=== PATIENT | male | born 1975 ===

== ENCOUNTER 2018-09-30 10:32 | Emergency (ER) | payer BC, OTHER ==
[2018-09-30 10:41] VITALS: O2SAT 100
[2018-09-30 11:11] LABS: BASO % 0.6 % (0.0-2.0); EOS % 0.5 % (0.0-4.0); HEMOGLOBIN 15.5 g/dL (12.0-18.0); LYMPH # 1.7 K/uL (1.0-4.3); LYMPH % 21.4 % (20.0-40.0); MEAN CELL VOLUME 85.4 fL (80.0-94.0); MEAN CORPUSCULAR HGB CONC 33.9 g/dL (33.0-37.0); MEAN PLATELET VOLUME 7.5 fL (7.2-11.7); MONO # 0.4 K/uL (0.0-0.8); MONO % 5.5 % (0.0-10.0); NEUT # 5.7 K/uL (1.8-7.0); NRBC % 0.1 % (0.0-2.0); RBC 5.36 Mil/uL (4.40-5.90); RED CELL DISTRIBUTION WIDTH 12.5 % (11.5-14.5); WHITE BLOOD COUNT 7.9 K/uL (4.8-10.8)
[2018-09-30 11:13] LABS: SQUAMOUS EPITHIAL 1 /hpf (0-5); URINE BILIRUBIN NEGATIVE (NEGATIVE); URINE BLOOD NEGATIVE (NEGATIVE); URINE CLARITY Clear (Clear); URINE COLOR Straw (YELLOW); URINE GLUCOSE (UA) 3+ mg/dL (Normal); URINE LEUKOCYTE ESTERASE NEG Leu/uL (Negative); URINE PROTEIN NEGATIVE (NEGATIVE); URINE UROBILINOGEN NORMAL mg/dL (0.2-1.0)
[2018-09-30 11:32] LABS: BARBITURATES, UR NEGATIVE (NEGATIVE); BENZODIAZEPINES, UR NEGATIVE (NEGATIVE); PHENCYCLIDINE, UR NEGATIVE (NEGATIVE)
[2018-09-30 11:35] LABS: ALB/GLOB RATIO 1.3 (1.0-2.1); ALBUMIN 4.7 g/dL (3.5-5.0); ALT/SGPT 20 U/L (21-72); AST/SGOT 28 U/L (17-59); BLOOD UREA NITROGEN 10 mg/dL (9-20); CALCIUM 9.8 mg/dl (8.6-10.4); GFR NON-AFRICAN AMERICAN > 60
[2018-09-30] MEDS ORDERED: Sodium Chloride 0.9% 1,000 ML IV STA ×2 (11:51→13:46)
[2018-09-30] MEDS ORDERED: (Novolin R) Insulin Human Regular 100 units/ml vial IVP STA (11:52)
[2018-09-30] MEDS ORDERED: Sodium Chloride 0.9% 1,000 ML ONE (12:10)
[2018-09-30] MEDS ORDERED: (Novolin R) Insulin Human Regular 100 units/ml vial ONE (12:10)
[2018-09-30 12:36] LABS: OPIATES, UR POSITIVE (NEGATIVE)
[2018-09-30 13:49] VITALS: BP 128/62; PULSE 65; RESP 20; TEMP 98.2
[2018-09-30] MEDS ORDERED: (Novolin R) Insulin Human Regular 100 units/ml vial IVP ONE (13:50)
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
== END 2018-09-30 15:16 | disposition home or self-care (01) ==
LOC: C.ER 10:32
DX: E11.65 Type 2 diabetes mellitus with hyperglycemia (principal); F19.20 Other psychoactive substance dependence, uncomplicated; F41.9 Anxiety disorder, unspecified
CPT/HCPCS: 80053; 81001; 82948; 83735; 84100; 85025; 96361; 96374; 99285; G0480; J7030

== ENCOUNTER 2018-10-08 19:11 | Emergency (ER) | payer OTHER | END 2018-10-08 23:55 | disposition home or self-care (01) | LOC: C.ER 19:11 | DX: E11.65 Type 2 diabetes mellitus with hyperglycemia (principal) | CPT/HCPCS: 80053; 80320; 80324; 80345; 80346; 80349; 80353; 80358; 80361; 81001; 82009; 82948; 83735; 83992; 84100; 85025; 96374; 99284; J7030 ==

== ENCOUNTER 2018-10-09 15:59 | Inpatient (IN) | payer BC, OTHER ==
[2018-10-09] MEDS ORDERED: Sodium Chloride 0.9% 1,000 ML IV ONE (17:18)
[2018-10-09] MEDS ORDERED: Sodium Chloride 0.9% 1,000 ML ONE (17:59)
[2018-10-09 18:23] LABS: BASO % 0.5 % (0.0-2.0); EOS # 0.1 K/uL (0.0-0.7); EOS % 0.9 % (0.0-4.0); HEMOGLOBIN 12.6 g/dL (12.0-18.0); LYMPH % 32.8 % (20.0-40.0); MEAN CELL VOLUME 83.9 fL (80.0-94.0); MEAN CORPUSCULAR HEMOGLOBIN 27.9 pg (27.0-31.0); MEAN CORPUSCULAR HGB CONC 33.3 g/dL (33.0-37.0); MEAN PLATELET VOLUME 7.6 fL (7.2-11.7); MONO # 0.6 K/uL (0.0-0.8); MONO % 6.5 % (0.0-10.0); NEUT # 5.4 K/uL (1.8-7.0); NEUT % 59.3 % (50.0-75.0); NRBC % 0.1 % (0.0-2.0); RBC 4.52 Mil/uL (4.40-5.90); RED CELL DISTRIBUTION WIDTH 12.6 % (11.5-14.5); WHITE BLOOD COUNT 9.1 K/uL (4.8-10.8)
[2018-10-09 18:25] LABS: SQUAMOUS EPITHIAL < 1 /hpf (0-5); URINE BILIRUBIN NEGATIVE (NEGATIVE); URINE BLOOD NEGATIVE (NEGATIVE); URINE CLARITY Clear (Clear); URINE COLOR Yellow (YELLOW); URINE GLUCOSE (UA) 3+ mg/dL (Normal); URINE LEUKOCYTE ESTERASE NEG Leu/uL (Negative); URINE PROTEIN NEGATIVE (NEGATIVE); URINE UROBILINOGEN NORMAL mg/dL (0.2-1.0)
[2018-10-09 18:38] LABS: ALB/GLOB RATIO 1.4 (1.0-2.1); ALBUMIN 3.6 g/dL (3.5-5.0); ALT/SGPT 26 U/L (21-72); AST/SGOT 19 U/L (17-59); BLOOD UREA NITROGEN 11 mg/dL (9-20); CALCIUM 8.8 mg/dl (8.6-10.4); GFR NON-AFRICAN AMERICAN > 60
[2018-10-09 18:46] LABS: BARBITURATES, UR NEGATIVE (NEGATIVE); PHENCYCLIDINE, UR NEGATIVE (NEGATIVE)
--- NOTE | 2018-10-09 18:50 | C.PDOC ---
History Of Present Illness 42 y/o male,w/PMhx of diabetes, presents to the ER requesting detox from heroin. Patient states that he is taking Methadone and he last used Methadone yesterday. He last used heroin IV 3 bags yesterday.Of note, he was treated for uncontrolled diabetes in [facility] last night. Patient reports that he is taking Metformin. He notes that he checked his blood sugar levels which were greater than 400 today. Denies having suicidal ideation, homicidal ideation, and active physical complaints. Time Seen by Provider: 10/09/18 17:02 Chief Complaint (Nursing): Substance Abuse History Per: Patient History/Exam Limitations: no limitations Past Medical History Reviewed: Historical Data, Nursing Documentation, Vital Signs Vital Signs: Last Vital Signs Temp 98.8 F 10/09/18 16:32 Pulse 100 H 10/09/18 16:32 Resp 20 10/09/18 16:32 BP 155/88 H 10/09/18 16:32 Pulse Ox 97 10/09/18 16:32 Primary Care Provider: Blair Luis MD - Medical History PMH: Anxiety, Depression, Diabetes, HTN Other Surgeries: Hx of surgeries Family History: States: No Known Family Hx - Social History Hx Alcohol Use: Yes Hx Substance Use: Yes - Immunization History Hx Tetanus Toxoid Vaccination: Yes Hx Influenza Vaccination: No Hx Pneumococcal Vaccination: No Review Of Systems Constitutional: Negative for: Fever, Chills Psych: Negative for: Suicidal ideation Physical Exam - Physical Exam Appears: No Acute Distress, Other (obese) Skin: Normal Color, Warm, Dry Head: Atraumatic, Normacephalic Eye(s): bilateral: Normal Inspection Nose: Normal Oral Mucosa: Moist Neck: Supple Chest: Symmetrical Cardiovascular: Rhythm Regular Respiratory: Normal Breath Sounds, No Rales, No Rhonchi, No Wheezing Gastrointestinal/Abdominal: Normal Exam, Soft, No Tenderness, No Guarding, No Rebound Neurological/Psych: Oriented x3, Normal Speech ED Course And Treatment - Laboratory Results Result Diagrams: 10/09/18 18:19 10/09/18 18: Lab Results: Total Bilirubin 0.3 mg/dL (0.2-1.3) 10/09/18 18: AST 19 U/L (17-59) 10/09/18 18: ALT 26 U/L (21-72) 10/09/18 18: Alkaline Phosphatase 67 U/L (38-126) 10/09/18 18: Total Protein 6.2 g/dL (6.3-8.3) L 10/09/18 18: Albumin 3.6 g/dL (3.5-5.0) 10/09/18 18: Globulin 2.6 gm/dL (2.2-3.9) 10/09/18 18: Albumin/Globulin Ratio 1.4 (1.0-2.1) 10/09/18 18:19 Urine Color Yellow (YELLOW) 10/09/18 18: Urine Clarity Clear (Clear) 10/09/18 18: Urine pH 6.0 (5.0-8.0) 10/09/18 18: Ur Specific [place] 1.038 (1.003-1.030) H 10/09/18 18:19 Urine Protein Negative mg/dL (NEGATIVE) 10/09/18 18: Urine Glucose (UA) 3+ mg/dL (Normal) H 10/09/18 18: Urine Ketones Negative mg/dL (NEGATIVE) 10/09/18 18: Urine Blood Negative (NEGATIVE) 10/09/18 18:19 Urine Nitrate Negative (NEGATIVE) 10/09/18 18: Urine Bilirubin Negative (NEGATIVE) 10/09/18 18: Urine Urobilinogen Normal mg/dL (0.2-1.0) 10/09/18 18:19 Ur Leukocyte Esterase Neg Antonino/uL (Negative) 10/09/18 18: Urine WBC (Auto) 1 /hpf (0-5) 10/09/18 18: Urine RBC (Auto) < 1 /hpf (0-3) 10/09/18 18:19 Ur Squamous Epith Cells < 1 /hpf (0-5) 10/09/18 18:19 Lab Interpretation: Abnormal (glucose 330) O2 Sat by Pulse Oximetry: 97 (RA) Pulse Ox Interpretation: Normal Progress Note: Patient is medically cleared for detox admission. Reevaluation Time: 19:30 Reassessment Condition: Improved Medical Decision Making Medical Decision Making: Plan: --Labs --UA --IV Fluids Disposition - Disposition Disposition: HOSPITALIZED Disposition Time: 19:31 Condition: IMPROVED - POA Present On Arrival: Poor Glycemic Control - Clinical Impression Clinical Impression: Hyperglycemia due to type 2 diabetes mellitus, Opioid dependence - Scribe Statement The provider has reviewed the documentation as recorded by the Doreenibe Dior Mahmood Provider Attestation: All medical record entries made by the Scribe were at my direction and personally dictated by me. I have reviewed the chart and agree that the record accurately reflects my personal performance of the history, physical exam, medical decision making, and the department course for this patient. I have also personally directed, reviewed, and agree with the discharge instructions and disposition.
[2018-10-09 18:53] LABS: BENZODIAZEPINES, UR POSITIVE (NEGATIVE); OPIATES, UR POSITIVE (NEGATIVE)
--- NOTE | 2018-10-09 19:47 | PCM.BM ---
<Yesica Ragland - Last Filed: 10/09/18 19:46> Treatment Plan Problems - Problems identified on initial assessmt Denial Date Initiated: 10/09/18 Time Initiated: 19:46 Assessment reference: NA Status: Active Defensive Coping Date Initiated: 10/09/18 Time Initiated: 19:46 Assessment reference: NA Status: Active Chronic Low Self Esteem Date Initiated: 10/09/18 Time Initiated: 19:47 Assessment reference: NA Status: Active Treatment assets and liabiliti Patient Assests: ADL independent, negotiates basic needs, cognitively intact Patient Liabilities: substance abuse, medical problems - Milieu Protocol Maintain good personal hygiene: daily Encourage regular showers, daily Remind patient to perform daily oral care, daily Assist patient to perform ADL's Conduct patient checks and document Observation sheet: Q15 minutes Maintain personal safety: every shift Educate patient to report safety concerns to staff, every shift Monitor environment for contraband/sharps Medication safety: Monitor for expected outcome, potential side effects: every shift, Assess barriers to learning: every shift, Assess readiness for medication education: every shift <Vishal Aragon - Last Filed: 10/10/18 14:37> - Diagnosis (1) Opioid dependence Status: Acute Interventions: 10/10/18 14:37 * Assess 7x/week regarding severity of withdrawal * Educate regarding risks, benefits, side effects and alternatives of medications * Use Motivational Interviewing for abstinence * Use CBT for relapse prevention * Medication management for withdrawal symptoms * Encourage medication assisted treatment * <Hali Page - Last Filed: 10/10/18 14:56> Family Contact Family involvement: Famliy/SO not involved - Goals for Treatment Patient goals for treatment: Complete detox and review aftercare options with counseling staff. Discharge/Continuing Care - Education Needs Education Needs: Patient Medication, Patient Diagnosis/Disease Process, Patient Coping Skills, Patient Anger Management skills, Patient Placement options, Patient Community resources - Discharge Discharge Criteria: No longer exhibiting s/s of withdrawal, Reduction of target symptoms (Pt. is unsure of aftercare as of this writing.)
[2018-10-09] MEDS ORDERED: Aluminum Hydroxide/Magnesium Hydroxide Susp (30 mL) PO PRN (21:03)
[2018-10-09] MEDS: (Novolog) Insulin Aspart, Recombinant 100 u/ml 10 ml vial SC SCH (21:34)
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
[2018-10-10] MEDS: (Novolog) Insulin Aspart, Recombinant 100 u/ml 10 ml vial SC SCH ×4 (08:33→21:47)
[2018-10-11] MEDS: (Novolog) Insulin Aspart, Recombinant 100 u/ml 10 ml vial SC SCH ×4 (08:23→21:42)
--- NOTE | 2018-10-11 12:02 | PCM.PYCHPN ---
Psychiatric Progress Note - Psychiatric Progress Note Patient seen today, length of contact: 16 min Patient Chief Complaint: "I'm fatigued" Problems Identified/Issues Discussed: The pt is seen, chart reviewed, case discussed with staff. The pt is compliant with medications and reports no side-effects. Symptoms are improving but needs more time to stabilize. Feels tired, depressed, anxious Pt attends groups and activities. Support given, psycho-education provided. After care discussed. Medication Change: Yes (detox changes daily) Medical Record Reviewed: Yes Mental Status Examination - Cognitive Function Orientation: Person, Place, Situation, Time Memory: Intact Attention: Poor Concentration: Poor Association: WNL Fund of Knowledge: WNL - Mood Mood: Depressed, Anxious, Other (irate) - Affect Affect: Constricted - Speech Speech: Appropriate - Formal Thought Process Formal Thought Process: No Impairment - Suicidal Ideation Suicidal Ideation: No - Homicidal Ideation Homicidal Ideation: No Goal/Treatment Plan - Goal/Treatment Plan Need for Continued Stay: Severe depression anxiety, Discharge may exacerbated symptoms, Severe functional impairment Progress Toward Problem(s) and Goals/Treatment Plan: Taper with methadone Lexapro for depression, anxiety Gabapentin for augmentation if needed As needed medications All risks, benefits and alternatives of the meds discussed, and the pt agreed and understood. Attend groups and activities Supportive therapy and psychoeducation [place] for abstinence CBT for relapse prevention Encourage MAT Refer to rehab or IOP, and self-help groups Teach healthy lifestyle methods, i.e. diet, exercise, meditation Smoking cessation with SD Nicotine patch if needed
[2018-10-12] MEDS: (Novolog) Insulin Aspart, Recombinant 100 u/ml 10 ml vial SC SCH ×4 (08:30→22:28)
--- NOTE | 2018-10-12 13:07 | PCM.PYCHPN ---
Psychiatric Progress Note - Psychiatric Progress Note Patient seen today, length of contact: 16 min Patient Chief Complaint: I am feeling better now. Problems Identified/Issues Discussed: Patient seen, chart reviewed, case discussed with the staff. Issues related to illness and treatment were discussed with the patient and staff. Reported compliant with treatment with no adverse effects. Tolerating treatment very well. Patient reported feeling better. Patient still has withdrawal symptoms including shaking, sweating, body aches and nausea. Last night patient started nauseous after getting Metformin 1000 mg. Zofran was given and put Metformin on hold. Patient did not get any Metformin this morning and was feeling better. Mood reported as okay. Affect appropriate. Staff reported no behavioral disturbance. Patient was awake, alert and oriented x3. Aftercare discussed with the patient. Patient wants to go to a short-term rehab for follow-up care after discharge from the hospital. Patient denied any delusions, auditory or visual hallucinations, no suicidal ideations or homicidal ideations at the time of the evaluation. Medical Problems: Diabetes mellitus Diagnostic Results: Reviewed DSM 5 Symptoms Update: Some improvement with treatment Medication Change: No Medical Record Reviewed: Yes Mental Status Examination - Cognitive Function Orientation: Person, Place, Situation, Time Memory: Intact Attention: WNL Concentration: WNL Association: [facility] Fund of Knowledge: [facility] Decription of patient's judgement and insights: Fair - Mood Mood: Anxious, Other (irate) - Affect Affect: Other (Appropriate) - Speech Speech: Appropriate - Formal Thought Process Formal Thought Process: No Impairment Psychotic Thoughts and Behaviors: None - Suicidal Ideation Suicidal Ideation: No - Homicidal Ideation Homicidal Ideation: No Goal/Treatment Plan - Goal/Treatment Plan Need for Continued Stay: Remain at risks for inpatient hospitalization, Discharge may exacerbated symptoms, Severe functional impairment Progress Toward Problem(s) and Goals/Treatment Plan: Patient education. Supportive therapy. CBT for relapse prevention. [place] for abstinence. Continue treatment as before. Hold metformin. Estimated Date of D/C: 10/15/18 - Smoking Cessation Smoking Cessation Initiated: No
[2018-10-13] MEDS: (Novolog) Insulin Aspart, Recombinant 100 u/ml 10 ml vial SC SCH ×4 (08:29→21:07)
[2018-10-14] MEDS: (Novolog) Insulin Aspart, Recombinant 100 u/ml 10 ml vial SC SCH ×4 (07:59→21:15)
--- NOTE | 2018-10-14 09:51 | PCM.PYCHPN ---
Psychiatric Progress Note - Psychiatric Progress Note Patient seen today, length of contact: 16 min Patient Chief Complaint: "I'm fatigued" Problems Identified/Issues Discussed: The pt is seen again, chart reviewed, and case is discussed with the team. The pt denies any side-effects from meds. Attends activities and groups, brief individual therapy provided Not ready for discharge due to ongoing symptoms and high relapse risk. He is also more irate and aloof Has some breakthrough sxs of wdw - extra metheadone to be given After care discussed again. Medication Change: Yes (detox changes daily) Medical Record Reviewed: Yes Mental Status Examination - Cognitive Function Orientation: Person, Place, Situation, Time Memory: Intact Attention: WNL Concentration: WNL Association: WNL Fund of Knowledge: WNL - Mood Mood: Anxious, Other (irate) - Affect Affect: Other (Appropriate) - Speech Speech: Appropriate - Formal Thought Process Formal Thought Process: No Impairment - Suicidal Ideation Suicidal Ideation: No - Homicidal Ideation Homicidal Ideation: No Goal/Treatment Plan - Goal/Treatment Plan Need for Continued Stay: Remain at risks for inpatient hospitalization, Discharge may exacerbated symptoms, Severe functional impairment Progress Toward Problem(s) and Goals/Treatment Plan: Taper with methadone Lexapro for depression, anxiety Gabapentin for augmentation if needed As needed medications All risks, benefits and alternatives of the meds discussed, and the pt agreed and understood. Attend groups and activities Supportive therapy and psychoeducation [place] for abstinence CBT for relapse prevention Encourage MAT Refer to rehab or IOP, and self-help groups Teach healthy lifestyle methods, i.e. diet, exercise, meditation Smoking cessation with [place] Nicotine patch if needed Estimated Date of D/C: 10/15/18
[2018-10-15 06:28] VITALS: TEMP 97.9
[2018-10-15] MEDS: (Novolog) Insulin Aspart, Recombinant 100 u/ml 10 ml vial SC SCH (08:48)
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
[2018-10-15] MEDS ORDERED: Bisacodyl 5mg EC Tab PO ONE (10:00)
[2018-10-15 10:45] VITALS: BP 150/106; PULSE 102; RESP 20; O2SAT 98
== END 2018-10-15 11:50 | disposition home or self-care (01) | DRG 745 ==
LOC: C.ER 15:59 → C.7D 19:32 → OBSVTOIN 10-10 08:31
PROVIDERS: ADMIT Psychiatry & Neurology Psychiatry; ATTEND Psychiatry & Neurology Psychiatry
PROC: HZ52ZZZ Individual Psychotherapy for Substance Abuse Treatment, Cognitive-Behavioral (ICD-10-PCS; principal; 2018-10-10)
PROC: HZ2ZZZZ Detoxification Services for Substance Abuse Treatment (ICD-10-PCS; 2018-10-10)
PROC: HZ59ZZZ Individual Psychotherapy for Substance Abuse Treatment, Supportive (ICD-10-PCS; 2018-10-10)
PROC: HZ56ZZZ Individual Psychotherapy for Substance Abuse Treatment, Psychoeducation (ICD-10-PCS; 2018-10-10)
PROC: HZ42ZZZ Group Counseling for Substance Abuse Treatment, Cognitive-Behavioral (ICD-10-PCS; 2018-10-10)
PROC: HZ46ZZZ Group Counseling for Substance Abuse Treatment, Psychoeducation (ICD-10-PCS; 2018-10-10)
PROC: GZHZZZZ Group Psychotherapy (ICD-10-PCS; 2018-10-10)
PROC: GZ58ZZZ Individual Psychotherapy, Cognitive-Behavioral (ICD-10-PCS; 2018-10-10)
PROC: GZ56ZZZ Individual Psychotherapy, Supportive (ICD-10-PCS; 2018-10-10)
DX: F11.23 Opioid dependence with withdrawal (principal); F43.10 Post-traumatic stress disorder, unspecified; I10 Essential (primary) hypertension; F17.210 Nicotine dependence, cigarettes, uncomplicated; Z59.0 Homelessness; E66.9 Obesity, unspecified; E11.9 Type 2 diabetes mellitus without complications; F41.8 Other specified anxiety disorders